=== PATIENT | male | born 1960 | race Caucasian/White ===

== ENCOUNTER 2019-03-02 09:53 | Emergency (ER) | payer SELFPAY ==
[2019-03-02] MEDS ORDERED: NA CHLORIDE 0.9% 1,000 ML ONE ×2 (11:02→12:22)
[2019-03-02] MEDS ORDERED: chlordiazePOXIDE HCl 25 MG CAP ONE (11:03)
[2019-03-02 11:42] LABS: Absolute Lymphocytes (CBC) 1.4 K/uL (0.7-4.9); Basophils % 0.5 % (0-1.3); Hematocrit 30.7 % (39.6-49.0); Lymphocytes % 21.8 % (15.3-44.8); RBC Red Blood Cell Count 3.31 M/uL (4.33-5.43)
[2019-03-02 11:51] LABS: ALT/SGPT 35 U/L (12-78); AST/SGOT 112 U/L (15-37); Albumin 2.8 g/dL (3.4-5.0); Alkaline Phosphatase 133 U/L (45-117); BUN Blood Urea Nitrogen 8 mg/dL (7-18); Bicarbonate 27 mmol/L (21-32); Bilirubin Direct 1.1 mg/dL (0-0.2); Bilirubin Total 1.9 mg/dL (0.2-1.0); Glucose Level 96 mg/dL (74-106); Potassium 4.2 mmol/L (3.5-5.1); Protein, Total 7.6 g/dL (6.4-8.2); Sodium Level 136 mmol/L (136-145)
[2019-03-02 11:53] LABS: Protime INR 1.19
[2019-03-02] MEDS ORDERED: MULTIVITAMINS 10 ML VIAL (INJ) IV ONE (12:22)
[2019-03-02] MEDS ORDERED: THIAMINE 200 MG/2 ML INJ ONE (12:22)
[2019-03-02] MEDS ORDERED: FOLIC ACID 5 MG/ML VIAL ONE (12:23)
[2019-03-02 12:54] LABS: Urine Blood TRACE (NEG); Urine Glucose NEGATIVE (NEG); Urine Protein NEGATIVE (NEG); Urine pH 7.5 (5.0-7.0)
[2019-03-02 13:12] LABS: Urine Bacteria >50 /HPF (NONE SEEN); Urine Culture Reflex Order REFLEXED
[2019-03-02] MEDS ORDERED: DIAZEPAM 10 MG/2 ML INJ SYRINGE ONE (13:14)
[2019-03-02 13:15] LABS: Barbiturates NEGATIVE (NEGATIVE); Benzodiazepines POSITIVE (NEGATIVE); Cocaine NEGATIVE (NEGATIVE); METHAMPHETAM NEGATIVE (NEGATIVE); Methadone NEGATIVE (NEGATIVE); Opiates NEGATIVE (NEGATIVE); Phencyclidine NEGATIVE (NEGATIVE); THC Cannibis NEGATIVE (NEGATIVE)
[2019-03-02 15:41] LABS: Blood Morphology Comment NOT SEEN (NOT SEEN); Platelet Estimate DECR; Urine White Blood Cell Casts OK
[2019-03-02] MEDS ORDERED: clonazePAM 0.5 MG TAB ONE (15:50)
--- NOTE | 2019-03-02 17:09 | EDPHYS ---
Physician Documentation [facility] Name: Cliff Wu Age: 58 yrs Sex: Male : 1960 Arrival Date: 03/02/2019 Time: 10:01 Bed 17 Private MD: ED Physician Jose Rothman HPI: 03/02 16:48 This 58 yrs old Male presents to ER via EMS with complaints of Tremor. kdr 17:12 The patient c/o tremors, confusion and diarrhea. States that he normally drinks about a kdr 5th of hard alcohol every two days. His last drink was at 2:00 AM today. He has had the shakes for several days and diarrhea x 6 today. He is at his usual/normal baseline today and in the ED. He is otherwise appropriate and when at rest, there are no tremors - only with movement.. Onset: The symptoms/episode began/occurred gradually, 3 day(s) ago. Severity of symptoms: At their worst the symptoms were mild moderate in the emergency department the symptoms are unchanged. The patient has not experienced similar symptoms in the past. The patient has not recently seen a physician. 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 - Social history:: Smoking status: Patient uses tobacco products, smokes one pack cigarettes per day. Patient uses alcohol, "1 pint every couple days". - Ebola Screening: : Patient negative for fever greater than or equal to 101.5 degrees Fahrenheit, and additional compatible Ebola Virus Disease symptoms Patient denies exposure to infectious person Patient denies travel to an Ebola-affected area in the 21 days before illness onset No symptoms or risks identified at this time. ROS: 17:12 Constitutional: Negative for fever, chills, and weight loss, Eyes: Negative for injury, kdr pain, redness, and discharge, Neck: Negative for injury, pain, and swelling, Cardiovascular: Negative for chest pain, palpitations, and edema, Respiratory: Negative for shortness of breath, cough, wheezing, and pleuritic chest pain, Abdomen/GI: Negative for abdominal pain, nausea, vomiting, diarrhea, and constipation, Back: Negative for injury and pain, : Negative for injury, bleeding, discharge, and swelling, MS/Extremity: Negative for injury and deformity, Skin: Negative for injury, rash, and discoloration, Psych: Negative for depression, anxiety, suicide ideation, homicidal ideation, and hallucinations, Allergy/Immunology: Negative for hives, rash, and allergies, Endocrine: Negative for neck swelling, polydipsia, polyuria, polyphagia, and marked weight changes, Hematologic/Lymphatic: Negative for swollen nodes, abnormal bleeding, and unusual bruising. 17:12 Abdomen/GI: Positive for diarrhea, Negative for abdominal pain, nausea and vomiting, constipation, abdominal cramps, abdominal distension. 17:12 Neuro: Positive for tremor, weakness. Exam: 17:12 Constitutional: This is a well developed, well nourished patient who is awake, alert, kdr and in no acute distress. he has ssginfiacnt and dramatic shaking when he attempts to move or change position. Any intentional movement triggers his tremors. At rest, he has no shales or tremors [id number]. Head/Face: Normocephalic, atraumatic. Eyes: Pupils equal round and reactive to light, extra-ocular motions intact. Lids and lashes normal. Conjunctiva and sclera are non-icteric and not injected. Cornea within normal limits. Periorbital areas with no swelling, redness, or edema. Neck: Trachea midline, no thyromegaly or masses palpated, and no cervical lymphadenopathy. Supple, full range of motion without nuchal rigidity, or vertebral point tenderness. No Meningismus. Chest/axilla: Normal chest wall appearance and motion. Nontender with no deformity. No lesions are appreciated. Cardiovascular: Regular rate and rhythm with a normal S1 and S2. No gallops, murmurs, or rubs. Normal PMI, no JVD. No pulse deficits. Respiratory: Lungs have equal breath sounds bilaterally, clear to auscultation and percussion. No rales, rhonchi or wheezes noted. No increased work of breathing, no retractions or nasal flaring. Abdomen/GI: Soft, non-tender, with normal bowel sounds. No distension or tympany. No guarding or rebound. No evidence of tenderness throughout. Back: No spinal tenderness. No costovertebral tenderness. Full range of motion. Skin: Warm, dry with normal turgor. Normal color with no rashes, no lesions, and no evidence of cellulitis. Vital Signs: 10:10 BP 180 / 90; Pulse 119; Resp 17 S; Pulse Ox 99% on R/A; Weight 67.13 kg (R); Height 5 ca1 ft. 11 in. (180.34 cm) (R); Pain 7/10; 10:32 Temp 98.9(O); ca1 11:27 BP 155 / 88; Pulse 87; Resp 16 S; Pulse Ox 97% on R/A; ca1 12:15 BP 150 / 78; Pulse 85; Resp 16 S; Pulse Ox 97% on R/A; ca1 13:36 BP 139 / 76; Pulse 89; Resp 16 S; Pulse Ox 95% on R/A; ca1 14:43 BP 138 / 79; Pulse 84; Resp 15 S; Pulse Ox 96% on R/A; ca1 17:00 BP 135 / 72; Pulse 88; Resp 18; Pulse Ox 98% on R/A; sg 10:10 Body Mass Index 20.64 (67.13 kg, 180.34 cm) ca1 MDM: 17:08 Patient medically screened. kdr 17:20 Data reviewed: vital signs, nurses notes, lab test result(s), radiologic studies. [facility] 03/02 10:48 Order name: Acetaminophen; Complete Time: 12: [facility] 03/02 10:48 Order name: Basic Metabolic Panel; Complete Time: 12: [facility] 03/02 10:48 Order name: CBC with Diff; Complete Time: 15:48 [facility] 03/02 10:48 Order name: ETOH Level; Complete Time: 12: [facility] 03/02 10:48 Order name: Hepatic Function; Complete Time: 12: [facility] 03/02 10:48 Order name: PT-INR; Complete Time: 12: [facility] 03/02 10:48 Order name: Ptt, Activated; Complete Time: 12: [facility] 03/02 10:48 Order name: Salicylate; Complete Time: 14:46 [facility] 03/02 10:48 Order name: Urine Drug Screen; Complete Time: 14:46 [facility] 03/02 12:42 Order name: Urine Microscopic Only; Complete Time: 14:46 iw 03/02 12:47 Order name: Urine Dipstick--Ancillary (enter results); Complete Time: 14:46 bd 03/02 13:16 Order name: Urine Culture EDAL 03/02 15:41 Order name: CBC Smear Scan; Complete Time: 15:48 EDAL 03/02 10:48 Order name: IV Saline Lock; Complete Time: 11:17 kdr 03/02 10:48 Order name: Labs collected and sent; Complete Time: 11:17 kdr 03/02 10:48 Order name: Urine Dipstick-Ancillary (obtain specimen); Complete Time: 13:08 kdr Administered Medications: 11:05 Drug: Librium - chlordiazePOXIDE 50 mg Route: PO; ca1 12:00 Follow up: Response: No adverse reaction ca1 11:11 Drug: NS 0.9% 1000 ml Route: IV; Rate: 1 bolus; Site: right forearm; ca1 12:15 Follow up: Urine output 90 ml; Response: No adverse reaction; IV Status: Completed ca1 infusion; IV Intake: 1000ml 12:17 Drug: Banana Bag - (NS 0.9% 1000 ml, foLIC Acid 1 mg, Thiamine 100 mg, Multivitamin 1 ca1 amp) Route: IV; Rate: calculated rate; Site: right forearm; 13:12 Drug: Valium 5 mg Route: IVP; Site: right forearm; ca1 15:17 Follow up: Response: No adverse reaction ca1 15:51 Drug: clonazePAM 0.5 mg Route: PO; ca1 16:30 Follow up: Response: No adverse reaction sg Disposition: 03/02/19 17:08 Discharged to Home. Impression: Tremor, unspecified, Abuse of non-psychoactive substances, Diarrhea, unspecified. - Condition is Stable. - Discharge Instructions: Tremor, Dystonia, Diarrhea, Adult, [id number]. - Prescriptions for clonazepam 0.5 mg Oral tablet - take 1 tablet by ORAL route 3 times per day As needed; 15 tablet. Lomotil 2.5- 0.025 mg Oral Tablet - take 1 tablet by ORAL route every 6 hours As needed; 20 tablet. - Medication Reconciliation Form, Thank You Letter form. - Follow up: Private Physician; When: 2 - 3 days; Reason: If symptoms return, Further diagnostic work-up, Recheck today's complaints, Continuance of care, Re-evaluation by your physician. - Problem is an ongoing problem. - Symptoms have improved. Signatures: Dispatcher [employer] EDMS Jose Rothman MD MD [facility] Estefania Wade RN RN Kell Esquivel RN RN [facility] Yifan Muñoz RN sg Corrections: (The following items were deleted from the chart) 17:11 17:08 03/02/2019 17:08 Discharged to Home. Impression: Tremor, unspecified; Abuse of kdr non-psychoactive substances. Condition is Stable. Forms are Medication Reconciliation Form, Thank You Letter, Antibiotic Education, Prescription Opioid Use. Follow up: Private Physician; When: 2 - 3 days; Reason: If symptoms return, Further diagnostic work-up, Recheck today's complaints, Continuance of care, Re-evaluation by your physician. Problem is an ongoing problem. Symptoms have improved. kdr 17:20 17:12 Constitutional: This is a well developed, well nourished patient who is awake, kdr alert, and in no acute distress. he has ssginfiacnt and dramatic shaking when he attempts to move or change position. Any intentional movement triggers his tremors. At rest, he has no shales or tremors [id number]. Head/Face: Normocephalic, atraumatic. Eyes: Pupils equal round and reactive to light, extra-ocular motions intact. Lids and lashes normal. Conjunctiva and sclera are non-icteric and not injected. Cornea within normal limits. Periorbital areas with no swelling, redness, or edema. Neck: Trachea midline, no thyromegaly or masses palpated, and no cervical lymphadenopathy. Supple, full range of motion without nuchal rigidity, or vertebral point tenderness. No Meningismus. Chest/axilla: Normal chest wall appearance and motion. Nontender with no deformity. No lesions are appreciated. Cardiovascular: Regular rate and rhythm with a normal S1 and S2. No gallops, murmurs, or rubs. Normal PMI, no JVD. No pulse deficits. Respiratory: Lungs have equal breath sounds bilaterally, clear to auscultation and percussion. No rales, rhonchi or wheezes noted. No increased work of breathing, no retractions or nasal flaring. Abdomen/GI: Soft, non-tender, with normal bowel sounds. No distension or tympany. No guarding or rebound. No evidence of tenderness throughout. Back: No spinal tenderness. No costovertebral tenderness. Full range of motion. Skin: Warm, dry with normal turgor. Normal color with no rashes, no lesions, and no evidence of cellulitis. kdr 17:34 17:11 03/02/2019 17:08 Discharged to Home. Impression: Tremor, unspecified; Abuse of hb non-psychoactive substances; Diarrhea, unspecified. Condition is Stable. Discharge Instructions: Tremor, Dystonia, Diarrhea, Adult, [id number]. Prescriptions for clonazepam 0.5 mg Oral tablet - take 1 tablet by ORAL route 3 times per day As needed; 15 tablet, Lomotil 2.5-0.025 mg Oral Tablet - take 1 tablet by ORAL route every 6 hours As needed; 20 tablet. and Forms are Medication Reconciliation Form, Thank You Letter. Follow up: Private Physician; When: 2 - 3 days; Reason: If symptoms return, Further diagnostic work-up, Recheck today's complaints, Continuance of care, Re-evaluation by your physician. Problem is an ongoing problem. Symptoms have improved. kdr
--- NOTE | 2019-03-02 17:09 | ER ---
Nurse's Notes [facility] Name: Cliff Wu Age: 58 yrs Sex: Male : 1960 Arrival Date: 03/02/2019 Time: 10:01 Bed 17 Private MD: Diagnosis: Tremor, unspecified;Abuse of non-psychoactive substances;Diarrhea, unspecified Presentation: 03/02 10:02 Presenting complaint: EMS states: pt c/o shaking and tremors. Pt has history of DT but ca1 today shaking and tremors are accompanied by disorientation and loss of balance. Pt lived in a hotel and when he got out he couldn't find his car. Now, pt is oriented x 4. Pt also c/o R ankle swelling and pain, rash on R AC, diarrhea x 6 today. Pt has history of HPN and Dementia. Pt last intake of alcohol was 0200 this morning. Pt SBP at 200s, HR 120s. Transition of care: patient was not received from another setting of care. Onset of symptoms was March 02, 2019. Risk Assessment: Do you want to hurt yourself or someone else? Patient reports no desire to harm self or others. Initial Sepsis Screen: Does the patient meet any 2 criteria? No. Patient's initial sepsis screen is negative. Does the patient have a suspected source of infection? No. Patient's initial sepsis screen is negative. Care prior to arrival: Medication(s) given: Normal saline infusion, 200ml IV initiated. 20 GA, in the right antecubital area. 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 - Social history:: Smoking status: Patient uses tobacco products, smokes one pack cigarettes per day. Patient uses alcohol, "1 pint every couple days". - Ebola Screening: : Patient negative for fever greater than or equal to 101.5 degrees Fahrenheit, and additional compatible Ebola Virus Disease symptoms Patient denies exposure to infectious person Patient denies travel to an Ebola-affected area in the 21 days before illness onset No symptoms or risks identified at this time. Screenin:30 Abuse screen: Denies threats or abuse. Denies injuries from another. Nutritional ca1 screening: No deficits noted. Tuberculosis screening: No symptoms or risk factors identified. 10:30 Fall Risk Fall in past 12 months (25 points). Secondary diagnosis (15 points) impaired ca1 mobility, IV access (20 points). Ambulatory Aid- Crutches/Cane/Walker (15 pts). Gait- Impaired (20 pts.). Mental Status- Overestimates/Forgets Limitations (15 pts.). Total Manz[place]res Fall Scale indicates High Risk Score (45 or more points). Fall prevention measures have been instituted. Side Rails Up X 2 Family Present and informed to notify staff if the need to leave the bedside As available patient and family educated on Fall Prevention Program and Strategies. Assessment: 10:30 General: Appears in no apparent distress. uncomfortable, Behavior is calm, cooperative, ca1 appropriate for age. General: Smells of alcohol. Pain: Complains of pain in right ankle Pain does not radiate. Pain currently is 7 out of 10 on a pain scale. Pain began a few days ago. Neuro: Level of Consciousness is awake, alert, obeys commands, Oriented to person, place, situation, Api Architect are equal bilaterally Moves all extremities. Speech is normal, Facial symmetry appears normal, Pupils are PERRLA, Intact Reports tremors and shaking. Cardiovascular: Heart tones S1 S2 present Capillary refill < 3 seconds Patient's skin is warm and dry. Pulses are all present. Rhythm is sinus rhythm. Respiratory: Airway is patent Respiratory effort is even, unlabored, Respiratory pattern is regular, symmetrical, Breath sounds are clear bilaterally. GI: Abdomen is flat, non-distended, Bowel sounds Abd is soft and non tender X 4 quads. : No deficits noted. No signs and/or symptoms were reported regarding the genitourinary system. EENT: No deficits noted. No signs and/or symptoms were reported regarding the EENT system. Derm: Skin is intact, is healthy with good turgor, Skin is pink, warm \\T\\ dry. Rash noted that is on right bicep, right antecubital area and dorsal aspect of right forearm petechial. Musculoskeletal: Amputation of AKA. Circulation, motion, and sensation intact. Capillary refill < 3 seconds, Swelling present in right ankle. 11:35 Reassessment: Patient appears in no apparent distress at this time. No changes from ca1 previously documented assessment. Patient and/or family updated on plan of care and expected duration. Pain level reassessed. 12:16 Reassessment: Patient appears in no apparent distress at this time. No changes from ca1 previously documented assessment. Patient and/or family updated on plan of care and expected duration. Pain level reassessed. 13:33 Reassessment: Patient appears in no apparent distress at this time. No changes from ca1 previously documented assessment. Patient and/or family updated on plan of care and expected duration. Pain level reassessed. 14:42 Reassessment: Patient appears in no apparent distress at this time. No changes from ca1 previously documented assessment. Patient and/or family updated on plan of care and expected duration. Pain level reassessed. Vital Signs: 10:10 BP 180 / 90; Pulse 119; Resp 17 S; Pulse Ox 99% on R/A; Weight 67.13 kg (R); Height 5 ca1 ft. 11 in. (180.34 cm) (R); Pain 7/10; 10:32 Temp 98.9(O); ca1 11:27 BP 155 / 88; Pulse 87; Resp 16 S; Pulse Ox 97% on R/A; ca1 12:15 BP 150 / 78; Pulse 85; Resp 16 S; Pulse Ox 97% on R/A; ca1 13:36 BP 139 / 76; Pulse 89; Resp 16 S; Pulse Ox 95% on R/A; ca1 14:43 BP 138 / 79; Pulse 84; Resp 15 S; Pulse Ox 96% on R/A; ca1 17:00 BP 135 / 72; Pulse 88; Resp 18; Pulse Ox 98% on R/A; sg 10:10 Body Mass Index 20.64 (67.13 kg, 180.34 cm) ca1 ED Course: 10:01 Patient arrived in ED. ca1 10:03 Jose Rothman MD is Attending Physician. kdr 10:10 Triage completed. ca1 10:10 Arm band placed on right wrist. ca1 10:30 Patient has correct armband on for positive identification. Placed in gown. Bed in low ca1 position. Call light in reach. Side rails up X2. order detailer on. Pulse ox on. NIBP on. Warm blanket given. 10:30 No provider procedures requiring assistance completed. Maintain EMS IV. Dressing ca1 intact. Good blood return noted. Site clean \\T\\ dry. Gauge \\T\\ site: G20 RFA. 10:32 Kell Esquivel, RN is Primary Nurse. ca1 11:11 Initial lab(s) drawn, by me, sent to lab. ca1 11:59 Notified ED physician of a critical lab result(s). PLT=51. iw 12:50 Urine collected: clean catch specimen, melinda colored. dh3 16:12 Primary Nurse role handed off by Kell Esquivel RN sg 16:12 Yifan Muñoz, CARON is Primary Nurse. sg 17:30 IV discontinued, intact, bleeding controlled, No redness/swelling at site. Pressure sg dressing applied. Administered Medications: 11:05 Drug: Librium - chlordiazePOXIDE 50 mg Route: PO; ca1 12:00 Follow up: Response: No adverse reaction ca1 11:11 Drug: NS 0.9% 1000 ml Route: IV; Rate: 1 bolus; Site: right forearm; ca1 12:15 Follow up: Urine output 90 ml; Response: No adverse reaction; IV Status: Completed ca1 infusion; IV Intake: 1000ml 12:17 Drug: Banana Bag - (NS 0.9% 1000 ml, foLIC Acid 1 mg, Thiamine 100 mg, Multivitamin 1 ca1 amp) Route: IV; Rate: calculated rate; Site: right forearm; 13:12 Drug: Valium 5 mg Route: IVP; Site: right forearm; ca1 15:17 Follow up: Response: No adverse reaction ca1 15:51 Drug: clonazePAM 0.5 mg Route: PO; ca1 16:30 Follow up: Response: No adverse reaction sg Intake: 12:15 IV: 1000ml; Total: 1000ml. ca1 Output: 12:15 Urine: 90ml; Total: 90ml. ca1 14:49 Urine: 450ml (Voided); Total: 540ml. ca1 Outcome: 17:08 Discharge ordered by . kdr 17:30 Discharged to home via wheelchair, with crutches. sg 17:30 Condition: good 17:30 Instructed on follow up and referral plans. safety practices, Demonstrated understanding of instructions, follow-up care. 17:34 Patient left the ED. Addendum: 03/05/2019 11:05 Addendum: Culture Results: Positive urine culture. No further action required. Other: i w pt had no urinary s/s, was instructed to follow up with PCP upon discharge . Signatures: Yifan Muñoz RN RN Jose Montoya MD MD [facility] Aleah Macdonald RN RN Estefania Wade RN RN Humera Gregg 3 Kell Esquivel RN RN ca1
[2019-03-03 04:16] VITALS: TEMP 98.9
[2019-03-03 04:24] VITALS: BP 138/79; O2SAT 96
== END 2019-03-02 17:34 | disposition home or self-care (01) ==
LOC: ER 09:53
DX: F55.8 Abuse of other non-psychoactive substances (principal); R19.7 Diarrhea, unspecified; I10 Essential (primary) hypertension; F03.90 Unspecified dementia, unspecified severity, without behavioral disturbance, psychotic disturbance, mood disturbance, and anxiety
CPT/HCPCS: 36415; 80048; 80076; 80307; 80320; 80329; 81003; 81015; 85025; 85610; 85730; 87077; 87086; 87088; 87186; 96361; 96374; 96375; 99284; J3360; J3411; J7030